=== PATIENT | female | born 1935 | race Caucasian/White ===

== ENCOUNTER → 2016-05-25 08:17 | Outpatient (CLI) | payer MEDICARE ==
[2016-05-25 09:48] LABS: APTT 27.9 SECONDS (22.8-39.4); PROTIME 13.1 SECONDS (11.6-15.0)
[2016-05-25 09:56] LABS: ALBUMIN 3.9 g/dL (3.4-5.0); BILIRUBIN - DIRECT 0.09 mg/dL (0.00-0.30); BILIRUBIN - INDIRECT 0.41 mg/dL (0.00-1.00); BILIRUBIN - TOTAL 0.5 mg/dL (0.2-1.3); PROTEIN - SERUM 8.2 g/dL (6.4-8.2)
[2016-05-25 10:22] LABS: BASOPHILS 0.3 % (0.0-2.0); EOSINOPHILS 1.9 % (0-7); HEMATOCRIT 44.1 % (36.0-48.0); HEMOGLOBIN 14.3 g/dL (12-16); IMMATURE GRANULOCYTES 0.1 % (0-5); LYMPHOCYTES 38.5 % (15-50); MCH 31.4 pg (26.0-34.0); MCHC 32.4 g/dL (31.0-37.0); MCV 96.9 fL (80.0-100.0); MEAN PLATELET VOLUME 11.5 fL (7.4-10.4); MONOCYTES 7.7 % (2-11); NEUTROPHILS 51.5 % (40-80); PLATELET COUNT 208 10x3/uL (130-400); RBC 4.55 10x6/uL (4.00-5.40); RDW 12.7 % (11.5-14.5); WBC 7.4 10x3/uL (4.8-10.8)
== END | disposition home or self-care (01) ==
LOC: D.US 08:17
PROVIDERS: Internal Medicine Gastroenterology
DX: E78.5 Hyperlipidemia, unspecified (principal); R58 Hemorrhage, not elsewhere classified

== ENCOUNTER 2016-12-23 05:32 | Day surgery (SDC) | payer MEDICARE ==
[~2016-12-23] VITALS: Ht 149.9 cm; Wt 66.2 kg
[2016-12-23] MEDS ORDERED: MIRALAX17 GM PO (06:10)
[2016-12-23 06:25] VITALS: BP 176/72; Ht 149.9 cm; Wt 66.2 kg
[2016-12-23 06:30] LABS: BASOPHILS 0.5 % (0-2); EOSINOPHILS 5.7 % (0-7); HEMOGLOBIN 13.9 g/dL (12-16); LYMPHOCYTES 36.8 % (15-50); MCH 31.4 pg (26.0-34.0); MCHC 33.9 g/dL (31.0-37.0); MCV 92.8 fL (80.0-100.0); MEAN PLATELET VOLUME 11.1 fL (7.4-10.4); MONOCYTES 13.2 % (2-11); NEUTROPHILS 43.8 % (40-80); PLATELET COUNT 193 10x3/uL (130-400); RBC 4.42 10x6/uL (4.00-5.40); RDW 13.4 % (11.5-14.5)
[2016-12-23 07:49] LABS: ANION GAP 11.7 mmol/L (8-16); CALCIUM 9.2 mg/dL (8.5-10.1); CREATININE - SERUM 0.8 mg/dL (0.6-1.3); POTASSIUM - SERUM 3.7 mmol/L (3.5-5.1)
--- NOTE | 2016-12-23 09:23 | NUR ---
0918: TATOOED RECURRENT POLY AT 40CM WITH TIMBO INK
--- NOTE | 2016-12-23 15:29 | NUR ---
1130--PT VOIDS, IV DC'D. LAZ ELENA 1202--DISCHARGE INSTRUCTIONS GIVEN, PT VERBALIZES UNDERSTANDING. PT OFF UNIT VIA WC. LAZ ELENA
--- NOTE | 2016-12-25 08:42 | OP ---
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 PROCEDURES: 1. Total colonoscopy to cecum. 2. Cold endoscopic biopsies of the polypoid regrowth with polypectomy utilizing the argon plasma roll slicing machine tender, which is a radiofrequency type of ablation of a benign colonic process. 3. Epinephrine injection through a sclerotherapy needle for hemorrhage control. 4. Endoscopic tattooing of the polypectomy site in order to identify it in the future. SURGEON: Shannan Osborn MD DURALUMIN METALWORKER: None. BLOOD LOSS: Minimal. ANESTHESIA: General. COMPLICATIONS: None. The risks, possible complications and alternatives to procedure were explained to the patient. She elects to proceed. OPERATIVE COURSE: The patient was conveyed to the operating room electively on 12/23/2016. General anesthesia was induced by the anesthesia staff. The patient was placed in the Rubio position. A digital rectal examination was performed. A colonoscope was inserted through the anus. It was easily advanced to the cecum. The prep was adequate. I slowly withdrew the endoscope. The pullback was greater than an 18-minute pullback. I utilized direct imaging as well as narrow band imaging. The lesion was best seen with narrow band imaging. There was about a 1.5 cm area of regrowth at the center of polyp, which was on a fold. Multiple cold endoscopic biopsies were performed. I then ablated the surrounding tissue, as well as any remaining polyp with the argon plasma roll slicing machine tender utilizing the right colon setting in the forced mode. For hemorrhage control, a sclerotherapy needle was advanced. The needle was deployed. I injected epinephrine into the base of the polypectomy site until there was no further bleeding. I then attached an Natasha ink to the sclerotherapy needle and performed a tattooing of the polypectomy site with 5 cc of Natasha ink. The sclerotherapy needle was withdrawn. I withdrew into the rectum. A retroflexed view was obtained in the rectum. I then unretroflexed the scope and removed it under direct vision. I will plan to see the patient in my office in 2-3 weeks. I will plan for her next colonoscopy with the argon plasma roll slicing machine tender to take place in 1 year unless the patient has been found to have an invasive malignancy. If that is the case, OPERATIVE REPORT [id number] BRENDA ASTUDILLO then she will require a segmental colectomy. TRANSINT:[id number] Voice Confirmation ID: [id number] DOCUMENT ID: [id number] SHANNAN OSBORN MD at 0842 CC: JOCELYNN DOHERTY MD, SUNNY HUFF MD and JACKIE SOTOMAYOR [id number] DICTATION DATE: 12/23/16 1002 HUMAN GEOGRAPHY INSTRUCTOR: 12/23/16 1024 [facility] 12/23/16 [place] [address] [place] [address]
--- NOTE | 2016-12-25 08:42 | HP ---
PATIENT: BRENDA ASTUDILLO MEDICAL RECORD: [id number] ACCOUNT: [id number] LOCATION:[facility] : 37 ADMISSION DATE: 12/23/16 HISTORY AND PHYSICAL EXAMINATION ADDENDUM: The patient has a history of polyp with high-grade dysplasia at 40 cm. She is to undergo surveillance colonoscopy. Due to the fact that this was a high-grade dysplasia, this puts her at a higher risk of developing an invasive malignancy and therefore, she is on a surveillance colonoscopy regimen that is at least a yearly regimen. The risks, possible complications and alternatives to the procedure were explained to the patient. She elects to proceed. Her physical examination is unchanged from last year. She has had no nausea, no vomiting, no fever, no chills, no abdominal pain and no rectal bleeding. TRANSINT:[id number] Voice Confirmation ID: [id number] DOCUMENT ID: [id number] SHANNAN OSBORN MD at 0842 CC: JOCELYNN DOHERTY MD, SUNNY HUFF MD and JACKIE SOTOMAYOR [id number] DICTATION DATE: 12/23/16 0959 STNA: 12/23/16 1008 [facility] 12/23/[address] [address]
== END 2016-12-23 12:05 | disposition home or self-care (01) ==
LOC: D.OPS 05:32 → D.PAN 08:00 → D.OPS 08:00
PROVIDERS: Anesthesiology
DX: K63.5 Polyp of colon (principal); E66.9 Obesity, unspecified; Z68.29 Body mass index [BMI] 29.0-29.9, adult; Z01.812 Encounter for preprocedural laboratory examination

== ENCOUNTER 2018-04-26 09:27 | Day surgery (SDC) | payer MEDICARE ==
[~2018-04-26] VITALS: Ht 149.9 cm; Wt 65.5 kg
[~2018-04-26 09:27] MED LIST: MIRALAX17 GM PO
[2018-04-26 10:00] LABS: BASOPHILS 0.3 % (0-2); EOSINOPHILS 1.8 % (0-7); HEMATOCRIT 40.9 % (36.0-48.0); HEMOGLOBIN 13.8 g/dL (12-16); IMMATURE GRANULOCYTES 0.1 % (0-5); MCH 31.4 pg (26.0-34.0); MCHC 33.7 g/dL (31.0-37.0); MCV 93.2 fL (80.0-100.0); MEAN PLATELET VOLUME 10.2 fL (7.4-10.4); MONOCYTES 8.3 % (2-11); NEUTROPHILS 63.5 % (40-80); RBC 4.39 10x6/uL (4.00-5.40); RDW 12.7 % (11.5-14.5); WBC 7.3 10x3/uL (4.8-10.8)
[2018-04-26 10:08] LABS: CALCIUM 9.1 mg/dL (8.5-10.1); CREATININE - SERUM 0.8 mg/dL (0.6-1.3)
[2018-04-26 10:11] LABS: PLATELET COUNT 243 10x3/uL (130-400)
[2018-04-26 10:32] VITALS: BP 177/47; Ht 149.9 cm; Wt 65.5 kg
--- NOTE | 2018-04-26 14:47 | NUR ---
DC INSTRUCTIONS GIVEN TO PT/FAMILY. STATE UNDERSTANDIND. DC'D IV CATH FULLY INTACT.
--- NOTE | 2018-04-26 14:55 | NUR ---
PT LEFT UNIT VIA WC AT 1459
--- NOTE | 2018-04-26 16:19 | HP ---
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 The patient has had regrowth of the polyp in the past, which required polypectomy utilizing the argon plasma test car driver. The polyp has been tattooed. The polyp was on a fold. The regrowth seen during the last colonoscopy was within the center of a scar. When it was removed, it was a tubular adenoma with low-grade dysplasia. Again, this is at 40 cm. The patient is here to undergo colonoscopy with possible EMR and polypectomy probably utilizing the argon plasma test car driver. PAST MEDICAL AND SURGICAL HISTORY: Colon polyps. She is a "free bleeder." History of kidney stones. History of PACs. SOCIAL HISTORY: Nonsmoker. HOME MEDICATIONS: None. ALLERGIES: No known drug allergies. REVIEW OF SYSTEMS: Negative for sleep apnea or angina. No history of myocardial infarction. No CABG. No history of coronary stents. PHYSICAL EXAMINATION: GENERAL: The patient does not appear acutely ill. She does not appear chronically ill. VITAL SIGNS: Reviewed. EARS: External ears appear normal. EYES: Extraocular movements are intact. NECK: Trachea is midline. CHEST: No intercostal retractions. PULMONARY: Nonlabored. No stridor. ABDOMEN: No peritonitis. 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 PLAN: As described above. TRANSINT:[id number] Voice Confirmation ID: [id number] DOCUMENT ID: [id number] SHANNAN OSBORN MD at 1619 CC: Ariel HUFF MARK W [id number] DICTATION DATE: 04/26/18 1322 BAR PORTER: 04/26/18 1407 [facility] 04/26/[address] [address]
--- NOTE | 2018-04-26 16:45 | OP ---
PATIENT NAME: BRENDA ASTUDILLO MEDICAL RECORD: [id number] :37 LOCATION:D.OPS ADMISSION DATE: SURGEON: SHANNAN OSBORN MD DATE OF OPERATION: 04/26/2018 PRINCIPAL DIAGNOSES: History of tubular adenoma with initially high-grade dysplasia and then low-grade dysplasia at 40 cm, tattooed. POSTOPERATIVE DIAGNOSES: History of tubular adenoma with initially high-grade dysplasia and then low-grade dysplasia at 40 cm, tattooed, with no evidence of recurrence or persistence of the polyp. PROCEDURES: 1. Total colonoscopy to cecum. 2. Cold endoscopic biopsies of the polyp and then ablation of the site with the argon plasma music artist for hemostasis. SURGEON: Shannan Osborn MD STATOR WINDER: None. BLOOD LOSS: Minimal. ANESTHESIA: IV sedation. COMPLICATIONS: None. The risks, possible complications and alternatives to procedure were explained to the patient. ENDOSCOPIC COURSE: The patient was conveyed to the endoscopy suite electively on 04/26/2018. IV sedation was induced by the anesthesia staff. The patient was placed in the Rubio position. A digital rectal examination was performed. A colonoscope was inserted through the anus. It was easily advanced to the cecum. The prep was excellent. I slowly withdrew the endoscope. I irrigated and aspirated extensively. A combination of normal imaging and narrow band imaging were utilized. The tattooed polyp at 40 cm was easily identified. The scar was biopsied with cold endoscopic biopsy forceps and then hemostasis was achieved with the argon plasma music artist utilizing the right colon setting in the forced mode. I then continued to withdraw the endoscope. The pullback was greater than 18-minute pullback. A retroflexed view was obtained in the rectum. I then unretroflexed the scope and removed it under direct vision. I will see the patient in my office in 2-3 weeks. If there has been no recurrence of the polyp, I will return the patient back over to Dr. Welsh for surveillance colonoscopies in the future. TRANSINT:[id number] Voice Confirmation ID: [id number] DOCUMENT ID: [id number] OPERATIVE REPORT [id number] BRENDA ASTUDILLO SHANNAN OSBORN MD at 1644 CC: Ariel WELSH MARK W [phone] DICTATION DATE: 04/26/18 1401 CARDIOVASCULAR TECHNOLOGIST: 04/26/[address] [facility] 04/26/18 [facility] [address] [place] [address]
== END 2018-04-26 14:59 | disposition home or self-care (01) ==
LOC: D.OPS 09:27
PROVIDERS: Anesthesiology
DX: D12.5 Benign neoplasm of sigmoid colon (principal); Z01.812 Encounter for preprocedural laboratory examination